=== PATIENT | female | born 1950 | race Hispanic/Latino ===

== ENCOUNTER 2023-05-25 06:01 | Observation (INO) | payer MEDICARE ==
[2023-05-21 13:34] LABS: BASOPHILS # (AUTO) 0.07 K/uL (0.00-0.20); BASOPHILS % (AUTO) 0.8 % (0.0-5.0); EOSINOPHILS # (AUTO) 0.18 K/uL (0.00-0.70); EOSINOPHILS % (AUTO) 2.1 % (0.0-8.0); HEMATOCRIT 43.3 % (36-48); IMMATURE GRANULOCYTE ABSOLUTE 0.04 K/uL (0-1); LYMPHOCYTES # (AUTO) 1.9 K/uL (1.0-4.8); LYMPHOCYTES % (AUTO) 22.9 % (21.0-51.0); MEAN CORPUSCULAR VOLUME 87.8 fL (79-99); MONOCYTES # (AUTO) 0.8 K/uL (0.1-1.0); MONOCYTES % (AUTO) 9.1 % (3.0-13.0); NEUTROPHILS # (AUTO) 5.5 K/uL (1.8-7.7); NEUTROPHILS % (AUTO) 64.6 % (40.0-77.0); PLATELET COUNT (AUTO) 201 K/uL (130-400); RED BLOOD CELL COUNT(AUTO) 4.93 MIL/uL (4.00-5.50); RED CELL DISTRIBUTION WIDTH 13.1 % (11.0-15.5); WHITE BLOOD COUNT (AUTO) 8.5 K/uL (4.8-10.8)
[2023-05-21 13:35] VITALS: BP 154/80; PULSE 54; RESP 18
[2023-05-21 13:43] LABS: POTASSIUM 3.8 mmol/L (3.5-5.1)
[2023-05-21 13:44] LABS: INR 1.17 (0.85-1.15); PROTHROMBIN TIME 13.6 SEC (9.6-11.6)
[2023-05-21 13:45] LABS: PARTIAL THROMBOPLASTIN TIME 36.9 SEC (26.3-35.5)
[2023-05-25] VITALS (12 sets, daily range): BP systolic 100–138; BP diastolic 52–78; PULSE 52–64; RESP 17–18; O2SAT 93–96
[~2023-05-25] VITALS: Ht 165.1 cm; Wt 105.9 kg
[~2023-05-25 06:01] MED LIST: BRIM5DRO5 OU; DORZ10DR10 OU; DRON400T7 PO; HYDR25TA PO; LATA2.5D14 OU; LEVO75CA5 PO; LOSA100T59 PO; NIFE-78 PO; RIVA20TA PO
[2023-05-25] MEDS ORDERED: 0.9%NACL 1000ML 1,000 ML IV ONE (06:19)
[2023-05-25] MEDS ORDERED: PHENYLEPHRINE HCL 10 MG/ML 1ML VIAL IV ONE (07:03)
[2023-05-25] MEDS ORDERED: FENTANYL CITRATE PF 50 MCG/1 ML 2ML VIAL ONE (07:03)
[2023-05-25] MEDS ORDERED: EPHEDRINE SULFATE 50 MG/ML AMPULE ONE (07:03)
[2023-05-25] MEDS ORDERED: LIDOCAINE PF 100MG/5ML (2%) SYRINGE 5ML ONE (07:04)
[2023-05-25] MEDS ORDERED: PROPOFOL 10 MG/ML 20ML VIAL IV ONE (07:04)
[2023-05-25] MEDS ORDERED: ROCURONIUM BROMIDE 10MG/1ML 5ML VL ONE (07:07)
[2023-05-25] MEDS ORDERED: SUCCINYLCHOLINE CHLORIDE 20 MG/ML 10 ML VIAL ONE (07:07)
[2023-05-25] MEDS ORDERED: ONDANSETRON 4MG INJ ONE (07:10)
[2023-05-25] MEDS ORDERED: GLYCOPYRROLATE 0.2 MG/ML 5 ML VIAL ONE (07:11)
[2023-05-25] MEDS ORDERED: LIDOCAINE HCL 400MG/20ML VIAL ONE (07:19)
[2023-05-25] MEDS ORDERED: HEPARIN 10,000 UNIT/10ML (1,000 UNIT/ML) VIAL ONE ×2 (07:19→08:33)
[2023-05-25] MEDS ORDERED: CEFAZOLIN SODIUM 1 GM VIAL ONE (07:57)
[2023-05-25] MEDS ORDERED: PROTAMINE SULFATE 10 MG/ML 5 ML VIAL ONE (10:04)
[2023-05-25] MEDS ORDERED: ACETAMINOPHEN 325 MG TAB PO PRN (11:00)
[2023-05-25] MEDS: PANTOPRAZOLE 40 MG TAB DR PO ONE (14:08)
[2023-05-25] MEDS: SUCRALFATE 1 GM TABLET PO SCH (14:08)
[2023-05-25] MEDS: RIVAROXABAN 20 MG TABLET PO SCH (18:18)
[2023-05-25] MEDS: DORZOLAMIDE HCL/TIMOLOL MALEAT DROPS 10 ML BOTTLE OU SCH (21:44)
[2023-05-25] MEDS: LATANOPROST 2.5 ML DROPS OU SCH (21:44)
[2023-05-26 03:35] VITALS: BP 125/58; PULSE 58; RESP 18
[2023-05-26] MEDS: LEVOTHYROXINE 75 MCG TABLET PO SCH (06:01)
[2023-05-26 07:00] VITALS: O2SAT 93
[2023-05-26 08:42] VITALS: BP 137/59; PULSE 52; RESP 18
[2023-05-26] MEDS: PANTOPRAZOLE 40 MG TAB DR PO SCH (09:11)
[2023-05-26] MEDS: HYDROCHLOROTHIAZIDE 25 MG TABLET PO SCH (09:11)
[2023-05-26] MEDS: NIFEDIPINE ER 30 MG TAB PO SCH (09:11)
[2023-05-26] MEDS: LOSARTAN 100 MG TABLET PO SCH (09:11)
[2023-05-26 12:22] VITALS: BP 140/66; PULSE 51; RESP 18
== END 2023-05-26 12:20 | disposition home or self-care (01) ==
LOC: DAH 06:01 → DAHIP 06:02 → DAH 06:02 → 2DH 12:35
PROVIDERS: ADMIT Internal Medicine Cardiovascular Disease; ATTEND Internal Medicine Cardiovascular Disease
DX: I48.0 Paroxysmal atrial fibrillation (principal); I45.10 Unspecified right bundle-branch block; E03.9 Hypothyroidism, unspecified; G47.33 Obstructive sleep apnea (adult) (pediatric); I45.89 Other specified conduction disorders; I10 Essential (primary) hypertension
CPT/HCPCS: 80048; 85025; 85610; 85730; 36415 ×2; 93005 ×2; 93656; 93657; 85347 ×5; A4344; C1894 ×3; C1732 ×2; C1893; A4215 ×2; C1731; A4649 ×2; G0378 ×25; J3010; J0690; J3490 ×4; J0330; J7030; J2001; J2720; J1644 ×3; J2704; J2405; J2371; A4223 ×3; A4222; A4221; A4663; A4216; A4606

== ENCOUNTER → 2024-02-28 | Outpatient (CLI) | payer MEDICARE ==
[2024-02-28 12:30] LABS: BASOPHILS # (AUTO) 0.07 K/uL (0.00-0.20); BASOPHILS % (AUTO) 0.8 % (0.0-5.0); EOSINOPHILS # (AUTO) 0.22 K/uL (0.00-0.70); EOSINOPHILS % (AUTO) 2.4 % (0.0-8.0); HEMATOCRIT 42.7 % (36-48); IMMATURE GRANULOCYTE ABSOLUTE 0.04 K/uL (0-1); LYMPHOCYTES # (AUTO) 2.3 K/uL (1.0-4.8); LYMPHOCYTES % (AUTO) 25.7 % (21.0-51.0); MEAN CORPUSCULAR HGB CONC 32.6 g/dL (32.0-36.0); MEAN CORPUSCULAR VOLUME 92.2 fL (79-99); MONOCYTES # (AUTO) 0.8 K/uL (0.1-1.0); MONOCYTES % (AUTO) 8.3 % (3.0-13.0); NEUTROPHILS # (AUTO) 5.7 K/uL (1.8-7.7); NEUTROPHILS % (AUTO) 62.4 % (40.0-77.0); PLATELET COUNT (AUTO) 210 K/uL (130-400); RED BLOOD CELL COUNT(AUTO) 4.63 MIL/uL (4.00-5.50); RED CELL DISTRIBUTION WIDTH 13.6 % (11.0-15.5); WHITE BLOOD COUNT (AUTO) 9.1 K/uL (4.8-10.8)
[2024-02-28 12:47] LABS: POTASSIUM 4.3 mmol/L (3.5-5.1)
== END | disposition home or self-care (01) ==
LOC: LAB 10:06
PROVIDERS: ATTEND Internal Medicine
DX: I10 Essential (primary) hypertension (principal); I45.10 Unspecified right bundle-branch block; I48.92 Unspecified atrial flutter
CPT/HCPCS: 36415; 80048; 80061; 85025

== ENCOUNTER → 2024-08-29 | Outpatient (CLI) | payer OTHER ==
[~2024-08-29] MED LIST changes: -LEVO75CA5 PO; +LEVO75CA6 PO
--- NOTE | 2024-08-30 13:12 | HMCIMG ---
EXAM: CT Cardiac calcium scoring. CLINICAL HISTORY: Screening. TECHNIQUE: Thin collimated axial CT cardiac images were obtained. A CT scan is done according to ALARA (As Low As Reasonably Achievable). CONTRAST: None. COMPARISON: None provided. FINDINGS: Calcium Score: VESSEL Number of lesions Volume mm3 Equi. Mass/mg Calcium score LM 0 0 - 0 LAD 1 22.6 - 37.5 LCX 0 0 - 0 RCA 3 11.2 - 15.5 Total 4 33.8 - 53.0 IMPRESSION: The calcium score is 53.0. This corresponds to the 53rd percentile. /[place]
== END | disposition home or self-care (01) ==
LOC: RAH 11:21
PROVIDERS: ATTEND Internal Medicine
DX: Z13.6 Encounter for screening for cardiovascular disorders (principal); E78.5 Hyperlipidemia, unspecified
CPT/HCPCS: 75571